=== PATIENT | female | born 1940 | race Caucasian/White ===

== ENCOUNTER 2016-03-28 15:08 | Observation (INO) | payer OTHER ==
[~2016-03-28] VITALS: Ht 162.6 cm; Wt 67.0 kg
[~2016-03-28 15:08] MED LIST: ARTIFICIAL TEAR15 M1 BOTH EYES; AVENTYL,PAMELOR10 MG PO; Augmentin PO; BONIVA3 MG/3 ML IV; CALCIUM 500 MG1 EACH PO; CALCIUM 600 +1 EAC1 PO; CALCIUM500 M5 PO; CHONDROITIN1 CAPSULE PO; COLACE100 MG PO; CONZIP100 MG PO; CRANBERRY500 MG PO; CYANOCOBALAM1000 MCG PO; DONEPEZIL HCL5 MG PO; DOXYCYCLINE HY100 MG PO; DULOXETINE HCL20 MG PO; EMLA 30 GM30 GM TP; GABAPENTIN100 MG PO; GLUCOSAMINE SU500 M1 PO; KENALOG,ARISTOC80 GM TP; LANSOPRAZOLE30 MG PO; LIDEX 0.05% OIN15 GM TP; LOTEMAX5 ML RIGHT EYE; NAMENDA XR28 MG PO; NEOMYC-POLYM-D3.5 GM RIGHT EYE; NORTRIPTYLINE H10 MG PO; Neurontin PO; OMEGA-3 SOFTGE1 EACH PO; PAMELOR10 MG PO; PERCOCET 5/31 TABLET PO; PREVACID30 MG PO; PROBIOTIC1 EACH PO; RESTASIS 01 DROP/0.4 BOTH EYES; TRAMADOL HCL50 MG PO; TYLENOL WITH C1 EACH PO; Ultram PO; VAGIFEM10 MCG VG; VALIUM5 MG PO; VITAMIN D2000 INTUN PO; VITAMIN D2000 UNIT PO
[2016-03-28 16:19] LABS: HEMATOCRIT 44.6 % (36.0-46.0); MCH 29.1 PG (29.0-34.0); MCV 88.3 FL (83-99); MEAN PLAT.VOLUME 10.9 uM^3 (9.5-12.4); PLATELET COUNT 215 K/uL (156-360); RBC DIS.WIDTH-CV 14.2 % (11.8-14.6); RBC DIS.WIDTH-SD 44.8 % (39-53); RED BLOOD COUNT 5.05 M/uL (3.80-5.20); WHITE BLOOD COUNT 6.3 K/uL (4.1-10.2)
[2016-03-28 16:29] LABS: CHLORIDE 102 mEq/L (99-109); POTASSIUM 4.2 mEq/L (3.7-5.4); SODIUM 140 mEq/L (136-147)
[2016-03-28 16:30] LABS: GLUCOSE 98 mg/dL (70-99)
[2016-03-28 16:32] LABS: ANION GAP 10 MEQ/L (2-14)
[2016-03-28 16:34] LABS: GFR ESTIMATE (CALCULATED) > 59 mL/min/
[2016-03-28 16:35] LABS: UREA NITROGEN (BUN) 16 mg/dL (9-23)
[2016-03-28 16:45] LABS: TROP-I INTERPRETATION NEGATIVE; TROPONIN-I < 0.01 ng/mL (0.0-0.30)
[2016-03-28 18:32] LABS: TROP-I INTERPRETATION NEGATIVE; TROPONIN-I < 0.01 ng/mL (0.0-0.30)
[2016-03-28] MEDS ORDERED: HALOBETASOL PRO15 GM TP (18:52)
[2016-03-28] MEDS ORDERED: NAMZARIC 28 MG1 EACH PO (18:52)
[2016-03-28] MEDS ORDERED: RESTASIS 01 DROP/0.4 BOTH EYES (18:55)
[2016-03-28] MEDS ORDERED: XIIDRA1 EACH BOTH EYES (18:56)
[2016-03-28] MEDS ORDERED: BONIVA3 MG/3 ML IV (18:58)
[2016-03-28] MEDS ORDERED: FLEXERIL5 MG PO (19:06)
[2016-03-28 21:38] VITALS: BP 169/74
== END 2016-03-28 21:37 | disposition home or self-care (01) ==
LOC: EME 15:08 → EDOF 20:22
PROVIDERS: Nurse Practitioner Family
DX: R07.89 Other chest pain (principal); M54.9 Dorsalgia, unspecified; I10 Essential (primary) hypertension; E78.5 Hyperlipidemia, unspecified; G30.9 Alzheimer's disease, unspecified; F02.80 Dementia in other diseases classified elsewhere, unspecified severity, without behavioral disturbance, psychotic disturbance, mood disturbance, and anxiety; F31.9 Bipolar disorder, unspecified; G89.29 Other chronic pain; G43.909 Migraine, unspecified, not intractable, without status migrainosus
CPT/HCPCS: 71020; 80048; 84484; 85027; 93005; 99281; 99285; G0378

== ENCOUNTER 2016-11-01 11:24 | Emergency (ER) | payer OTHER ==
[~2016-11-01] VITALS: Ht 162.6 cm; Wt 73.3 kg
[~2016-11-01 11:24] MED LIST changes: +FLEXERIL5 MG PO; +HALOBETASOL PRO15 GM TP; +NAMZARIC 28 MG1 EACH PO; +XIIDRA1 EACH BOTH EYES
[2016-11-01 13:09] LABS: HEMATOCRIT 41.6 % (36.0-46.0); MCH 28.7 PG (29.0-34.0); MCHC 31.7 G/DL (30.0-36.0); MCV 90.4 FL (83-99); MEAN PLAT.VOLUME 10.3 uM^3 (9.5-12.4); PLATELET COUNT 183 K/uL (156-360); RBC DIS.WIDTH-CV 13.2 % (11.8-14.6); RBC DIS.WIDTH-SD 44.3 % (39-53); WHITE BLOOD COUNT 4.7 K/uL (4.1-10.2)
[2016-11-01 13:24] LABS: CHLORIDE 103 mEq/L (99-109); SODIUM 141 mEq/L (136-147)
[2016-11-01 13:25] LABS: GLUCOSE 89 mg/dL (70-99)
[2016-11-01 13:27] LABS: ANION GAP 11 MEQ/L (2-14)
[2016-11-01 13:29] LABS: GFR ESTIMATE (CALCULATED) > 59 mL/min/
[2016-11-01 13:30] LABS: TROP-I INTERPRETATION NEGATIVE; TROPONIN-I < 0.01 ng/mL (0.0-0.30); UREA NITROGEN (BUN) 10 mg/dL (9-23)
[2016-11-01 13:32] LABS: ADD MIUA? NO; BILIRUBIN NEGATIVE; BLOOD NEGATIVE; COLOR YELLOW ((YELLOW)); GLUCOSE (STRIP) NEGATIVE; KETONES NEGATIVE; LEUKOCYTES NEGATIVE; NITRITE NEGATIVE; PROTEIN (STRIP) NEGATIVE; SPECIFIC GRAVITY 1.013 (1.000-1.030); UROBILINOGEN 0.2 MG/DL (0.2-1.0)
[2016-11-01 15:32] LABS: TROP-I INTERPRETATION NEGATIVE; TROPONIN-I < 0.01 ng/mL (0.0-0.30)
[2016-11-01 16:01] VITALS: BP 166/72
== END 2016-11-01 16:03 | disposition home or self-care (01) ==
LOC: EME 11:24
PROVIDERS: Nurse Practitioner Family
DX: R07.89 Other chest pain (principal); S29.011A Strain of muscle and tendon of front wall of thorax, initial encounter; M79.602 Pain in left arm; W18.30XA Fall on same level, unspecified, initial encounter; I70.0 Atherosclerosis of aorta
CPT/HCPCS: 71020; 80048; 81003; 84484; 85027; 93005; 99281; 99284

== ENCOUNTER 2017-02-11 13:44 | Emergency (ER) | payer OTHER ==
[~2017-02-11] VITALS: Ht 162.6 cm; Wt 72.0 kg
[~2017-02-11 13:44] MED LIST changes: +CYMBALTA60 MG PO; -DULOXETINE HCL20 MG PO
[2017-02-11 18:57] VITALS: BP 163/99
== END 2017-02-11 18:59 | disposition home or self-care (01) ==
LOC: EME 13:44
DX: S01.81XA Laceration without foreign body of other part of head, initial encounter (principal); S00.83XA Contusion of other part of head, initial encounter; W01.198A Fall on same level from slipping, tripping and stumbling with subsequent striking against other object, initial encounter; Y93.01 Activity, walking, marching and hiking; Y92.481 Parking lot as the place of occurrence of the external cause; Z23 Encounter for immunization; K21.9 Gastro-esophageal reflux disease without esophagitis; K90.0 Celiac disease; F32.9 Major depressive disorder, single episode, unspecified; Z91.040 Latex allergy status; Z88.5 Allergy status to narcotic agent; Z88.1 Allergy status to other antibiotic agents; Z88.4 Allergy status to anesthetic agent; Z88.8 Allergy status to other drugs, medicaments and biological substances
CPT/HCPCS: 70450; 72125; 99281; 99283

== ENCOUNTER 2017-02-12 16:40 | Emergency (ER) | payer OTHER ==
[~2017-02-12] VITALS: Ht 162.6 cm; Wt 74.4 kg
[2017-02-12 17:47] LABS: EOSINOPHIL (%) 0.1 % (0-5); IMMATURE GRANULOCYTE (%) 0.1 % (0.0-0.7); INSTRUMENT ABS NEUTROPHIL CT 5.7 K/uL; LYMPHOCYTE COUNT 0.7 K/uL (1.0-2.8); MCH 29.9 PG (29.0-34.0); MCHC 32.9 G/DL (30.0-36.0); MCV 90.9 FL (83-99); MEAN PLAT.VOLUME 10.3 uM^3 (9.5-12.4); MONOCYTE (%) 4.3 % (3-12); MONOCYTE COUNT 0.3 K/uL (0-0.8); NEUTROPHIL (%) 84.5 % (45-76); NEUTROPHIL COUNT 5.7 K/uL (1.8-6.4); PLATELET COUNT 196 K/uL (156-360); RBC DIS.WIDTH-SD 42.8 % (39-53); RED BLOOD COUNT 4.62 M/uL (3.80-5.20); WHITE BLOOD COUNT 6.7 K/uL (4.1-10.2)
[2017-02-12 17:59] LABS: CHLORIDE 104 mEq/L (99-109); POTASSIUM 4.2 mEq/L (3.7-5.4); SODIUM 138 mEq/L (136-147)
[2017-02-12 18:00] LABS: GLUCOSE 117 mg/dL (70-99)
[2017-02-12 18:02] LABS: ANION GAP 8 MEQ/L (2-14)
[2017-02-12 18:04] LABS: GFR ESTIMATE (CALCULATED) > 59 mL/min/
[2017-02-12 18:05] LABS: UREA NITROGEN (BUN) 14 mg/dL (9-23)
[2017-02-12 21:05] VITALS: BP 147/62
[2017-02-13] MEDS ORDERED: GABAPENTIN100 MG PO (20:57)
== END 2017-02-12 21:08 | disposition home or self-care (01) ==
LOC: EME 16:40
PROVIDERS: Emergency Medicine
DX: R42 Dizziness and giddiness (principal); R51 Headache; R53.1 Weakness; Z91.81 History of falling
CPT/HCPCS: 70450; 80048; 85025; 93005; 99281; 99284; J2405

== ENCOUNTER 2017-02-13 17:40 | Observation (INO) | payer OTHER ==
[~2017-02-13] VITALS: Ht 162.6 cm; Wt 69.2 kg
[2017-02-13 18:28] LABS: EOSINOPHIL (%) 0.8 % (0-5); EOSINOPHIL COUNT 0.1 K/uL (0-0.3); HEMATOCRIT 44.4 % (36.0-46.0); IMMATURE GRANULOCYTE (%) 0.3 % (0.0-0.7); LYMPHOCYTE COUNT 1.3 K/uL (1.0-2.8); MCHC 32.4 G/DL (30.0-36.0); MCV 92.5 FL (83-99); MEAN PLAT.VOLUME 10.3 uM^3 (9.5-12.4); MONOCYTE (%) 6.7 % (3-12); MONOCYTE COUNT 0.5 K/uL (0-0.8); NEUTROPHIL (%) 75.5 % (45-76); PLATELET COUNT 200 K/uL (156-360); RBC DIS.WIDTH-CV 13.2 % (11.8-14.6); RBC DIS.WIDTH-SD 44.5 % (39-53)
[2017-02-13 18:41] LABS: CHLORIDE 103 mEq/L (99-109); POTASSIUM 3.6 mEq/L (3.7-5.4); SODIUM 139 mEq/L (136-147)
[2017-02-13 18:43] LABS: GLUCOSE 93 mg/dL (70-99)
[2017-02-13 18:44] LABS: ANION GAP 9 MEQ/L (2-14)
[2017-02-13 18:47] LABS: GFR ESTIMATE (CALCULATED) > 59 mL/min/; UREA NITROGEN (BUN) 13 mg/dL (9-23)
[2017-02-13 18:49] LABS: ADD MIUA? NO; BILIRUBIN NEGATIVE; BLOOD NEGATIVE; COLOR STRAW ((YELLOW)); GLUCOSE (STRIP) NEGATIVE; KETONES 20; LEUKOCYTES NEGATIVE; NITRITE NEGATIVE; PROTEIN (STRIP) NEGATIVE; SPECIFIC GRAVITY 1.006 (1.000-1.030); UROBILINOGEN 0.2 MG/DL (0.2-1.0)
[2017-02-13 18:51] LABS: TROP-I INTERPRETATION NEGATIVE; TROPONIN-I < 0.01 ng/mL (0.0-0.30)
[2017-02-13] MEDS ORDERED: GABAPENTIN100 MG PO (20:57)
[2017-02-14] VITALS (8 sets, daily range): BP systolic 121–179; BP diastolic 56–83
[2017-02-14 00:53] LABS: HEMATOCRIT 43.5 % (36.0-46.0); MCHC 32.9 G/DL (30.0-36.0); MCV 91.2 FL (83-99); MEAN PLAT.VOLUME 10.6 uM^3 (9.5-12.4); PLATELET COUNT 218 K/uL (156-360); RBC DIS.WIDTH-CV 13.2 % (11.8-14.6); RBC DIS.WIDTH-SD 44.2 % (39-53); RED BLOOD COUNT 4.77 M/uL (3.80-5.20); WHITE BLOOD COUNT 7.4 K/uL (4.1-10.2)
[2017-02-14 01:17] LABS: TROP-I INTERPRETATION NEGATIVE; TROPONIN-I < 0.01 ng/mL (0.0-0.30)
[2017-02-14 03:35] LABS: HDL CHOLESTEROL 70 MG/DL (Desirable>=50); LDL CHOLESTEROL 136 mg/dL (Desirable<100); NON-HDL CHOLESTEROL 152 mg/dL (Desirable<160); SAMPLE HEMOLYSIS CHECK 0; SAMPLE ICTERIC CHECK 0; SAMPLE LIPEMIA CHECK 0; TOTAL CHOLESTEROL 222 mg/dL (Desirable<200); TRIGLYCERIDES 82 MG/DL (Normal: <150)
[2017-02-14 05:40] LABS: TROP-I INTERPRETATION NEGATIVE; TROPONIN-I < 0.01 ng/mL (0.0-0.30)
[2017-02-14 06:52] LABS: Estimated Average Glucose 105 mg/dL (70-123); HEMOGLOBIN A1c (GLYCOHEMOGLOB) 5.3 % HGB (Below 5.7)
[2017-02-15 00:17] VITALS: BP 160/73
[2017-02-15 03:10] VITALS: BP 145/69
[2017-02-15] MEDS ORDERED: NAMZARIC 28 MG1 EACH PO (04:50)
[2017-02-15 07:58] VITALS: BP 133/64
[2017-02-15 12:45] VITALS: BP 149/68
[2017-02-15 15:53] VITALS: BP 133/60
[2017-02-15 22:45] VITALS: BP 132/64
[2017-02-16] VITALS (7 sets, daily range): BP systolic 112–166; BP diastolic 57–74
[2017-02-16 07:55] LABS: MCH 30.2 PG (29.0-34.0); MCHC 33.3 G/DL (30.0-36.0); MCV 90.5 FL (83-99); MEAN PLAT.VOLUME 10.4 uM^3 (9.5-12.4); PLATELET COUNT 199 K/uL (156-360); RBC DIS.WIDTH-CV 13.2 % (11.8-14.6); RBC DIS.WIDTH-SD 43.8 % (39-53); RED BLOOD COUNT 4.31 M/uL (3.80-5.20); WHITE BLOOD COUNT 10.1 K/uL (4.1-10.2)
[2017-02-16 08:18] LABS: ANION GAP 8 MEQ/L (2-14); CHLORIDE 109 MEQ/L (99-109); GFR ESTIMATE (CALCULATED) > 59 mL/min/; GLUCOSE 125 mg/dL (70-99); SAMPLE HEMOLYSIS CHECK 0; SAMPLE ICTERIC CHECK 0; SAMPLE LIPEMIA CHECK 0; SODIUM 142 MEQ/L (136-147)
[2017-02-16 08:20] LABS: POTASSIUM 4.5 MEQ/L (3.7-5.4); UREA NITROGEN (BUN) 23 mg/dL (9-23)
[2017-02-16 10:14] LABS: ERTH.SED.RATE 10 MM/HR (0-30)
[2017-02-17 07:35] VITALS: BP 152/78
[2017-02-17 13:00] VITALS: BP 184/76
[2017-02-17] MEDS ORDERED: DIVALPROEX SOD500 M1 PO (14:43)
[2017-02-17] MEDS ORDERED: TYLENOL REGULA325 MG PO (14:43)
[2017-02-17] MEDS ORDERED: POLYETHYLENE GL17 GM PO (14:44)
[2017-02-17] MEDS ORDERED: ANTIVERT25 MG PO (14:44)
== END 2017-02-17 18:03 | disposition home or self-care (01) ==
LOC: EME 17:40 → EDOF 22:00 → 5WEST 22:00 → EDOF 22:00 → ENRESERV 22:31 → 5WEST 23:23
PROVIDERS: Emergency Medicine; Hospitalist; Nurse Practitioner Adult Health
DX: I95.1 Orthostatic hypotension (principal); R41.0 Disorientation, unspecified; R29.6 Repeated falls; Z91.81 History of falling; R42 Dizziness and giddiness; R51 Headache; G30.9 Alzheimer's disease, unspecified; F02.80 Dementia in other diseases classified elsewhere, unspecified severity, without behavioral disturbance, psychotic disturbance, mood disturbance, and anxiety; K59.00 Constipation, unspecified; G89.29 Other chronic pain; K90.0 Celiac disease; M48.061 Spinal stenosis, lumbar region without neurogenic claudication; M51.26 Other intervertebral disc displacement, lumbar region; Z90.49 Acquired absence of other specified parts of digestive tract; Z90.710 Acquired absence of both cervix and uterus; Z91.040 Latex allergy status; Z88.5 Allergy status to narcotic agent; Z88.8 Allergy status to other drugs, medicaments and biological substances; Z79.82 Long term (current) use of aspirin
CPT/HCPCS: 70551; 72131; 74000; 80048; 80061; 81003; 82607; 82746; 83036; 84484; 85025; 85027; 85651; 86140; 93880; 99281; 99285; G0378; G8978 GP CK; G8979 CJ; G8980 GP CK; G8987 GO CJ; G8988 CI; G8989 CJ; J0360; J1644; J2930; J7030; J7040; J7050

== ENCOUNTER 2017-02-19 16:07 | Emergency (ER) | payer OTHER ==
[~2017-02-19] VITALS: Ht 162.6 cm; Wt 70.5 kg
[~2017-02-19 16:07] MED LIST changes: +ANTIVERT25 MG PO; +DIVALPROEX SOD500 M1 PO; +POLYETHYLENE GL17 GM PO; +TYLENOL REGULA325 MG PO
[2017-02-19 17:13] LABS: HEMATOCRIT 45.1 % (36.0-46.0); MCHC 32.8 G/DL (30.0-36.0); MCV 91.5 FL (83-99); MEAN PLAT.VOLUME 10.5 uM^3 (9.5-12.4); PLATELET COUNT 201 K/uL (156-360); RBC DIS.WIDTH-CV 13.3 % (11.8-14.6); RBC DIS.WIDTH-SD 45.3 % (39-53); RED BLOOD COUNT 4.93 M/uL (3.80-5.20); WHITE BLOOD COUNT 5.4 K/uL (4.1-10.2)
[2017-02-19 17:21] LABS: CHLORIDE 102 mEq/L (99-109); SODIUM 140 mEq/L (136-147)
[2017-02-19 17:23] LABS: GLUCOSE 95 mg/dL (70-99)
[2017-02-19 17:25] LABS: ANION GAP 9 MEQ/L (2-14); TOTAL BILIRUBIN 0.4 mg/dL (0.0-1.0)
[2017-02-19 17:27] LABS: ALKALINE PHOSPHATASE 65 IU/L (3-129); GFR ESTIMATE (CALCULATED) > 59 mL/min/
[2017-02-19 17:28] LABS: UREA NITROGEN (BUN) 16 mg/dL (9-23)
[2017-02-19 18:03] LABS: ADD MIUA? NO; BILIRUBIN NEGATIVE; BLOOD NEGATIVE; COLOR YELLOW ((YELLOW)); GLUCOSE (STRIP) NEGATIVE; KETONES 5; LEUKOCYTES NEGATIVE; NITRITE NEGATIVE; PROTEIN (STRIP) NEGATIVE; UCUL ADDED? NO; UROBILINOGEN 0.2 MG/DL (0.2-1.0)
[2017-02-19 19:21] VITALS: BP 148/72
== END 2017-02-19 19:50 | disposition home or self-care (01) ==
LOC: EME 16:07
PROVIDERS: Emergency Medicine
DX: R53.1 Weakness (principal); R42 Dizziness and giddiness; R51 Headache; Z91.81 History of falling; S01.112D Laceration without foreign body of left eyelid and periocular area, subsequent encounter; W18.30XD Fall on same level, unspecified, subsequent encounter; Z48.02 Encounter for removal of sutures; G30.0 Alzheimer's disease with early onset; F02.80 Dementia in other diseases classified elsewhere, unspecified severity, without behavioral disturbance, psychotic disturbance, mood disturbance, and anxiety
CPT/HCPCS: 80053; 80164; 81003; 85027; 93005; 99281; 99285; J7030

== ENCOUNTER 2017-09-06 11:57 | Emergency (ER) | payer OTHER ==
[~2017-09-06] VITALS: Ht 162.6 cm; Wt 73.8 kg
[2017-09-06 12:52] LABS: HEMATOCRIT 40.7 % (36.0-46.0); HEMOGLOBIN 13.2 G/DL (11.9-15.5); MCH 29.7 PG (29.0-34.0); MCHC 32.4 G/DL (30.0-36.0); MCV 91.7 FL (83-99); PLATELET COUNT 194 K/uL (156-360); RBC DIS.WIDTH-CV 13.5 % (11.8-14.6); RBC DIS.WIDTH-SD 45.9 % (39-53); RED BLOOD COUNT 4.44 M/uL (3.80-5.20)
[2017-09-06 13:19] LABS: TROP-I INTERPRETATION NEGATIVE; TROPONIN-I < 0.01 ng/mL (0.0-0.30)
[2017-09-06 13:20] LABS: CHLORIDE 103 MEQ/L (99-109); CREATININE 0.9 MG/DL (0.6-1.3); GFR ESTIMATE (CALCULATED) > 59 mL/min/; GLUCOSE 108 mg/dL (70-99); POTASSIUM 3.9 MEQ/L (3.7-5.4); SODIUM 140 MEQ/L (136-147); UREA NITROGEN (BUN) 12 mg/dL (9-23)
[2017-09-06 14:49] LABS: TROP-I INTERPRETATION NEGATIVE; TROPONIN-I < 0.01 ng/mL (0.0-0.30)
[2017-09-06 16:15] VITALS: BP 134/68
== END 2017-09-06 16:16 | disposition home or self-care (01) ==
LOC: EME 11:57
PROVIDERS: Nurse Practitioner Family
DX: R07.89 Other chest pain (principal); K21.9 Gastro-esophageal reflux disease without esophagitis; K90.0 Celiac disease; G43.909 Migraine, unspecified, not intractable, without status migrainosus; F32.9 Major depressive disorder, single episode, unspecified; Z90.49 Acquired absence of other specified parts of digestive tract; Z90.710 Acquired absence of both cervix and uterus; Z88.5 Allergy status to narcotic agent; Z91.040 Latex allergy status; Z88.8 Allergy status to other drugs, medicaments and biological substances
CPT/HCPCS: 71046; 80048; 84484; 85027; 93005; 99281; 99284